=== PATIENT | female | born 1960 | race Caucasian/White ===

== ENCOUNTER 2018-09-09 23:52 | Emergency (ER) | payer BC ==
[~2018-09-09] VITALS: Ht 170.2 cm; Wt 67.6 kg
[2018-09-09 23:52] VITALS: BP_SYST 161
[2018-09-10 01:10] VITALS: BP_SYST 140
== END 2018-09-10 01:10 | disposition home or self-care (01) ==
LOC: SED 23:52
DX: S63.502A Unspecified sprain of left wrist, initial encounter (principal); I10 Essential (primary) hypertension; W01.0XXA Fall on same level from slipping, tripping and stumbling without subsequent striking against object, initial encounter; Y93.89 Activity, other specified; Y92.89 Other specified places as the place of occurrence of the external cause; Y99.8 Other external cause status
CPT/HCPCS: 99283